=== PATIENT | male | born 1955 | race Caucasian/White ===

== ENCOUNTER 2016-10-05 05:29 | Day surgery (SDC) | payer BC ==
[~2016-10-05] VITALS: Ht 177.8 cm; Wt 77.4 kg
[2016-10-05] MEDS ORDERED: ASPI-664 PO (06:49)
[2016-10-05] MEDS ORDERED: ATOR80TA75 PO (06:49)
[2016-10-05 06:55] VITALS: Ht 177.8 cm; Wt 77.4 kg
[2016-10-05 07:07] VITALS: BP 147/85; PULSE 50; RESP 15
[2016-10-05] MEDS ORDERED: FENTAnyl 50 MCG/ML VIAL ONE (08:07)
[2016-10-05] MEDS ORDERED: MIDAZOLAM 1 MG/ML 2 ML INJ ONE ×2 (08:07)
[2016-10-05 08:24] VITALS: BP 119/79; PULSE 50; RESP 14
--- NOTE | 2016-10-10 05:38 | GILP ---
DATE OF PROCEDURE: 10/05/2016 PROCEDURE PERFORMED: Colonoscopy, biopsy and polypectomy. SURGEON: Dr. Lomas. PREOPERATIVE DIAGNOSIS: Screening colonoscopy. POSTOPERATIVE DIAGNOSES: 1. Colonoscopy all the way to the cecum. 2. Large polyp in the sigmoid colon at 30 cm from the anus was removed using the snare and electrocautery. 3. Flat sigmoid colon polyp was removed using the biopsy forceps. 4. Internal hemorrhoids. INDICATION: Mr. Kayleigh Ortega is a 61-year-old male patient who was scheduled for screening colonoscopy. The procedure and possible complications were well explained to the patient. He understood and consented to the procedure. DESCRIPTION OF PROCEDURE: Under influence of fentanyl and Versed, the colonoscope was carefully introduced in the rectum. Under direct vision, it was advanced all the way to the cecum. FINDINGS: The patient had a large sigmoid colon polyp at 30 cm from the anus and it was removed using the snare and electrocautery. The patient also had a flat polyp in the sigmoid colon and it was removed using the biopsy forceps. He was noted to have internal hemorrhoids. He tolerated the procedure very well. There was no complication from the procedure. At the end of the procedure, he was awake with stable vital signs and he was discharged home in the care of his family. IMPRESSION: 1. Colonoscopy all the way to the cecum. 2. Large sigmoid colon polyp at 30 cm from the anus was removed using the snare and electrocautery. 3. Flat sigmoid colon polyp was removed using the biopsy forceps. 4. Internal hemorrhoids. PLAN: 1. Await histopathology report. 2. The timing for the next colonoscopy will be decided after reviewing the pathology report. Dictated By: MD OLEKSANDR Haywood/brandon/stacia /Document#: [id number] CC: Thor Lomas MD;*[facility]*
== END 2016-10-05 10:02 | disposition home or self-care (01) ==
LOC: GIL 05:29
PROVIDERS: ATTEND Internal Medicine Gastroenterology
DX: Z12.11 Encounter for screening for malignant neoplasm of colon (principal); D12.5 Benign neoplasm of sigmoid colon; K64.8 Other hemorrhoids
CPT/HCPCS: 45380; J2250; J3010